=== PATIENT | male | born 2000 | race Hispanic/Latino ===

== ENCOUNTER 2019-04-30 04:00 | Emergency (ER) | payer OTHER ==
[~2019-04-30] VITALS: Ht 170.2 cm; Wt 64.7 kg
[2019-04-30] MEDS ORDERED: AMPICILLIN SOD/SULBACTAM SOD 3 GM in D5W MINI-BAG PLUS 100 ML IV ONE (04:30)
[2019-04-30] MEDS ORDERED: MORPHINE 10 MG/ML 1ML VIAL (J2270) IV ONE (04:30)
[2019-04-30] MEDS ORDERED: BUPIVACAINE LIPOSOME/PF 1.3% 20ML VIAL (13.3MG/ML)(EXPAREL)(C9290 PER1MG) INFIL ONE (04:30)
[2019-04-30] MEDS ORDERED: SILVER NITRATE APPLICATOR As Ordered ONE (06:10)
[2019-04-30] MEDS ORDERED: SILVER NITRATE APPLICATOR TOP ONE (06:15)
[2019-04-30] MEDS ORDERED: AUGM500T34 PO (06:35)
[2019-04-30] MEDS ORDERED: PERC7.5T11 PO (06:36)
[2019-04-30 06:55] VITALS: BP 129/79
--- NOTE | 2019-04-30 07:19 | REP ---
Clinical: Trauma. Technique: AP, lateral, bilateral oblique views of the right fifth digit. Findings: Fracture involving the distal phalanx is appreciated with small displaced fracture fragment and overlying soft tissue injury/laceration. Joint spaces appear unaffected. Impression: Fracture of the distal phalanx with overlying soft tissue injury. Electronically Signed by Mj Gomez MD 04/30/2019 07:11 A
== END 2019-04-30 06:58 | disposition home or self-care (01) ==
LOC: M ED 04:00
DX: S62.636B Displaced fracture of distal phalanx of right little finger, initial encounter for open fracture (principal); W23.0XXA Caught, crushed, jammed, or pinched between moving objects, initial encounter; Y92.89 Other specified places as the place of occurrence of the external cause; Y99.0 Civilian activity done for income or pay
CPT/HCPCS: 64400; 73140; 96365; 96375; 99284; C9290; J2270